=== PATIENT | male | born 1930 | race Caucasian/White ===

== ENCOUNTER → 2016-08-19 | Outpatient (CLI) | payer OTHER ==
[~2016-08-19] MED LIST: ADVAIR 250-501 EACH IH; ADVAIR 500-501 EACH IH; ADVAIR INH; ALPRAZOLAM PO; ASPIRIN81 M1 PO; LISINOPRIL10 MG PO; LISINOPRIL2.5 MG PO; LOPRESSOR PO; LOW DOSE ASPIRI81 M2 PO; METFORMIN HCL500 M1 PO; NITROGYLCERIN SUBLINGUAL; PROAIR HFA8.5 GM INH; SYMBICORT INH; TOPROL XL PO; ZOCOR PO
--- NOTE | ~2016-08-19 | MR2 ---
[facility] A Service of [facility] RADIOLOGY TEXT RESULTS PATIENT: SARA FRANCO LOCATION: [facility] : 31 UNIT #: [id number] AGE: [address]: CARMELO BASS MD (INT MED) SEX: M ORDER DR: [id number] [facility] [address] [place], [place] [address] [id number] O MR#: [id number] Acc #: [id number] NAME: SARA FRANCO : 1930 SEX: M STUDY DATE/TIME: 08/19/2016 18:04 UNIT: [facility] ROOM: STUDY DESCRIPTION: MR Abdomen WWo Cont Attending Physician: Carmelo Bass M.D. Referring Physician: Carmelo Bass M.D. Ordering Physician: Carmelo Bass M.D. Primary Care Physician: Carmelo Bass M.D. MRI CENTER REPORT This report is preliminary unless electronic signature is present. EXAM MR abdomen with and without contrast, 08/19/2016. INDICATIONS Adrenal adenoma. Adrenal mass. Abnormal CT scan of the chest. FINDINGS There is thickening of both limbs of the left adrenal gland. There are 2.5 and 1.7-cm nodules in the left adrenal gland. There is loss of signal on the "out of phase" sequence, indicative of lipid-rich adrenal adenomas. The right adrenal gland is normal. No suspicious findings. There are multiple cysts in the kidneys. No suspicious renal mass. There is generalized atrophy of the pancreas with acinarization of the pancreatic duct. This suggests chronic pancreatitis. There are multiple small cysts adjacent to the pancreatic duct; these measure less than 1 cm. The majority are only a few millimeters in size. There are no abnormal enhancing masses or aggressive features. An infrarenal abdominal aortic aneurysm measures 3.3 cm. IMPRESSION 1. Benign left adrenal adenomas. 2. Generalized atrophy of the pancreas with acinarization of the pancreatic duct. This suggests chronic pancreatitis. There are multiple cystic areas in the pancreas, most consistent small pseudocysts. The largest measures up to 1 cm. There are no aggressive or malignant features identified. I would consider precautionary 12-month followup MRI/MRCP to confirm benign etiology. 3. 3.3-cm infrarenal abdominal aortic aneurysm. [facility] A Service of [facility] RADIOLOGY TEXT RESULTS PATIENT: SARA FRANCO LOCATION: [facility] : 31 UNIT #: [id number] AGE: [address]: CARMELO BASS MD (INT MED) SEX: M ORDER DR: Dictated by... Saad Osuna M.D. THIS IS AN ELECTRONICALLY VERIFIED REPORT Saad Osuna M.D. at 08/22/2016 4:56 PM PAULINE/alexandria TD: 08/22/2016 15:16 JOB #: [id number] MRI CENTER REPORT Page 1 of 1 COPY
[2016-08-19 18:10] LABS: POC - CREATININE 1.3 mg/dL (0.64-1.27)
== END | disposition home or self-care (01) ==
LOC: CMRI 17:04
PROVIDERS: Internal Medicine
DX: D35.02 Benign neoplasm of left adrenal gland (principal); K86.89 Other specified diseases of pancreas; K86.2 Cyst of pancreas; I71.4 Abdominal aortic aneurysm, without rupture
CPT/HCPCS: 74183; 82565; A9577